=== PATIENT | female | born 1960 | race Caucasian/White ===

== ENCOUNTER 2018-12-20 11:07 | Inpatient (IN) | payer MEDICAID ==
[~2018-12-20] VITALS: Ht 157.5 cm; Wt 89.9 kg
[~2018-12-20 11:07] MED LIST: ACET-784 PO; AMLO5TAB9 PO; FLUO-191 PO; INSLAN SQ; LEVO500 PO; SIMV-260 PO
[2018-12-20] MEDS ORDERED: MULT-1145 PO (11:37)
[2018-12-20] MEDS ORDERED: CARV12 PO (11:37)
[2018-12-20] MEDS ORDERED: FURO20 PO (11:37)
[2018-12-20] MEDS ORDERED: GABA-531 PO (11:37)
[2018-12-20] MEDS ORDERED: OMEP20 PO (11:37)
[2018-12-20] MEDS ORDERED: GEMF600T5 PO (11:37)
[2018-12-20] MEDS ORDERED: CETI10TA59 PO (11:37)
[2018-12-20] MEDS ORDERED: KETOROLAC TROMETHAMINE 10 MG TABLET PO ONE (12:00)
[2018-12-20] MEDS ORDERED: ONDANSETRON HCL 4 MG/2 ML VIAL IVP ONE (13:15)
[2018-12-20] MEDS ORDERED: MORPHINE SULFATE 4 MG/ML SYRINGE IVP ONE (13:15)
[2018-12-20 14:14] LABS: BASOPHILS % (AUTO) 0.1 % (0.0-2.0); EOSINOPHILS % (AUTO) 0.2 % (1.0-6.0); HEMATOCRIT 25.6 % (36-46); HEMOGLOBIN 8.6 g/dL (12.0-16.0); LYMPHOCYTES # (AUTO) 1.2 K/uL (1.0-4.8); LYMPHOCYTES % (AUTO) 18.3 % (22.0-44.0); MEAN CORPUSCULAR HEMOGLOBIN 32.1 pg (26.0-34.0); MEAN CORPUSCULAR HGB CONC 33.6 G/dL (31.0-37.0); MEAN CORPUSCULAR VOLUME 96 fL (80-100); MONOCYTES # (AUTO) 0.4 K/uL (0.1-1.0); MONOCYTES % (AUTO) 5.8 % (2.0-9.0); NEUTROPHILS # (AUTO) 4.8 K/uL (1.8-7.7); NEUTROPHILS % (AUTO) 75.6 % (40.0-70.0); PLATELET COUNT (AUTO) 213 K/uL (150-450); RED BLOOD CELL COUNT(AUTO) 2.68 MIL/uL (4.00-5.20); RED CELL DISTRIBUTION WIDTH 13.8 % (11.5-14.5)
[2018-12-20] MEDS ORDERED: 0.9% SODIUM CHLORIDE 10 ML SYRINGE IVP PRN ×2 (14:15→20:15)
[2018-12-20] MEDS ORDERED: ONDANSETRON HCL 4 MG/2 ML VIAL IVP PRN (14:15)
[2018-12-20] MEDS ORDERED: HYDROmorphone 2 MG/ML SYRINGE IVP PRN (14:15)
[2018-12-20 14:19] LABS: CALCIUM, TOTAL 8.6 mg/dL (8.8-10.5); CREATININE 5.21 mg/dL (0.60-1.30); POTASSIUM 4.1 mmol/L (3.5-5.1)
[2018-12-20 14:23] LABS: PROTHROMBIN TIME 10.2 SEC (9.4-11.6)
[2018-12-20 14:24] LABS: ALBUMIN 2.3 g/dL (3.4-5.0); BILIRUBIN,TOTAL 0.2 mg/dL (0.1-1.0); TOTAL PROTEIN, SERUM 6.4 g/dL (6.4-8.2)
[2018-12-20 18:56] VITALS: BP 126/63
[2018-12-20] MEDS ORDERED: RINGERS SOLUTION,LACTATED 1,000 ML IV SCH (19:45)
[2018-12-20] MEDS ORDERED: DEXTROSE 50%-WATER 25 GM/50 ML SYRINGE IVP PRN (20:15)
[2018-12-20] MEDS ORDERED: HEPARIN SODIUM,PORCINE 5,000 UNITS/ML VIAL SQ ONE (20:15)
[2018-12-20] MEDS: INSULIN LISPRO 100 UNITS/ML SQ PRN (21:06)
[2018-12-20] MEDS: DOCUSATE SODIUM 100 MG CAPSULE PO SCH (21:15)
[2018-12-20] MEDS: OMEPRAZOLE 20 MG CAPSULE PO SCH (21:15)
[2018-12-20] MEDS: CARVEDILOL 12.5 MG TABLET PO SCH (21:15)
[2018-12-20] MEDS: OxyCODONE HCL/ACETAMINOPHEN 5-325 MG TABLET PO PRN (21:25)
[2018-12-21] VITALS (21 sets, daily range): BP systolic 78–130; BP diastolic 32–80
[2018-12-21 01:22] LABS: CREATININE,URINE RANDOM 65.6 mg/dL (30.0-125.0)
[2018-12-21] MEDS: INSULIN LISPRO 100 UNITS/ML SQ PRN ×4 (05:44→20:54)
[2018-12-21 06:05] LABS: BASOPHILS % (AUTO) 0.1 % (0.0-2.0); EOSINOPHILS % (AUTO) 0.4 % (1.0-6.0); HEMATOCRIT 23.1 % (36-46); HEMOGLOBIN 7.7 g/dL (12.0-16.0); LYMPHOCYTES # (AUTO) 0.9 K/uL (1.0-4.8); LYMPHOCYTES % (AUTO) 21.3 % (22.0-44.0); MEAN CORPUSCULAR HEMOGLOBIN 32.4 pg (26.0-34.0); MEAN CORPUSCULAR HGB CONC 33.4 G/dL (31.0-37.0); MEAN CORPUSCULAR VOLUME 97 fL (80-100); MONOCYTES # (AUTO) 0.4 K/uL (0.1-1.0); MONOCYTES % (AUTO) 8.2 % (2.0-9.0); NEUTROPHILS # (AUTO) 3.1 K/uL (1.8-7.7); PLATELET COUNT (AUTO) 186 K/uL (150-450); RED BLOOD CELL COUNT(AUTO) 2.38 MIL/uL (4.00-5.20); RED CELL DISTRIBUTION WIDTH 14.6 % (11.5-14.5)
[2018-12-21 06:37] LABS: CREATININE 5.3 mg/dL (0.60-1.30); PHOSPHORUS 6.5 mg/dL (2.5-4.9); POTASSIUM 4.5 mmol/L (3.5-5.1)
[2018-12-21 07:20] LABS: GLUCOMETER DEV NAME(LOC) 5N.1; GLUCOSE,POINT OF CARE 236 MG/DL (70-110)
[2018-12-21 07:20] LABS: GLUCOMETER DEV NAME(LOC) 5S.3; GLUCOSE,POINT OF CARE 370 MG/DL (70-110)
[2018-12-21 08:23] LABS: % IRON SATURATION 23.3 % (22-44)
[2018-12-21] MEDS: OMEPRAZOLE 20 MG CAPSULE PO SCH (08:46)
[2018-12-21] MEDS: CARVEDILOL 12.5 MG TABLET PO SCH ×2 (08:46→20:53)
[2018-12-21] MEDS: DOCUSATE SODIUM 100 MG CAPSULE PO SCH ×2 (08:46→20:46)
[2018-12-21] MEDS ORDERED: SODIUM CHLORIDE 0.9% 500 ML IV ONE ×2 (10:14→10:30)
[2018-12-21] MEDS: RINGERS SOLUTION,LACTATED 1,000 ML IV SCH ×2 (12:00→14:26)
[2018-12-21] MEDS: CALCIUM ACETATE 667 MG CAPSULE PO SCH ×2 (12:20→17:36)
[2018-12-21 15:28] LABS: GLUCOMETER DEV NAME(LOC) 5S.3; GLUCOSE,POINT OF CARE 310 MG/DL (70-110)
[2018-12-21 16:56] LABS: APPEARANCE,URINE TURBID (CLEAR); BILIRUBIN,URINE NEGATIVE (NEGATIVE); GLUCOSE, URINE (UA) 500 mg/dL (NEGATIVE); KETONES,URINE NEGATIVE (NEGATIVE); LEUKOCYTE ESTERASE ,URINE LARGE (NEGATIVE); NITRATE,URINE NEGATIVE (NEGATIVE); OCCULT BLOOD,URINE MODERATE (NEGATIVE); PH,URINE 5.5 (5.0-8.0); PROTEIN,URINE SEE CONFIRM (NEGATIVE); UROBILINOGEN,URINE 0.2 mg/dL (<=1.0)
[2018-12-21 17:16] LABS: BACTERIA,URINE Few /HPF (None Seen); WBC,URINE >100 /HPF (0-5); YEAST,URINE Few /HPF (None Seen)
[2018-12-21 17:17] LABS: SULFOSALICYLIC ACID,URINE 3+ (Negative)
[2018-12-21] MEDS: CefTRIAXone 1 GM/DEXTROSE 50 ML IV SCH (20:46)
[2018-12-21] MEDS: OxyCODONE HCL/ACETAMINOPHEN 5-325 MG TABLET PO PRN (20:47)
[2018-12-21 20:54] LABS: BASOPHILS % (AUTO) 0.1 % (0.0-2.0); EOSINOPHILS % (AUTO) 0.4 % (1.0-6.0); HEMATOCRIT 27.5 % (36-46); HEMOGLOBIN 9.1 g/dL (12.0-16.0); LYMPHOCYTES % (AUTO) 17.6 % (22.0-44.0); MEAN CORPUSCULAR HEMOGLOBIN 31.9 pg (26.0-34.0); MEAN CORPUSCULAR HGB CONC 33.1 G/dL (31.0-37.0); MEAN CORPUSCULAR VOLUME 96 fL (80-100); MONOCYTES # (AUTO) 0.4 K/uL (0.1-1.0); MONOCYTES % (AUTO) 6.9 % (2.0-9.0); NEUTROPHILS # (AUTO) 4.4 K/uL (1.8-7.7); PLATELET COUNT (AUTO) 189 K/uL (150-450); RED BLOOD CELL COUNT(AUTO) 2.86 MIL/uL (4.00-5.20)
[2018-12-21 21:14] LABS: GLUCOMETER DEV NAME(LOC) 5S.2A; GLUCOSE,POINT OF CARE 273 MG/DL (70-110)
[2018-12-21 21:14] LABS: GLUCOMETER DEV NAME(LOC) 5S.2A; GLUCOSE,POINT OF CARE 250 MG/DL (70-110)
[2018-12-22 04:24] VITALS: BP 99/51
[2018-12-22] MEDS: RINGERS SOLUTION,LACTATED 1,000 ML IV SCH ×2 (05:04→23:21)
[2018-12-22] MEDS: INSULIN LISPRO 100 UNITS/ML SQ PRN ×4 (05:19→22:19)
[2018-12-22 05:34] LABS: GLUCOMETER DEV NAME(LOC) 5S.2A; GLUCOSE,POINT OF CARE 243 MG/DL (70-110)
[2018-12-22 06:28] LABS: CALCIUM, TOTAL 7.9 mg/dL (8.8-10.5); CREATININE 6.39 mg/dL (0.60-1.30)
[2018-12-22 07:43] VITALS: BP 115/51
[2018-12-22] MEDS: CARVEDILOL 12.5 MG TABLET PO SCH ×2 (09:00→21:00)
[2018-12-22] MEDS: DOCUSATE SODIUM 100 MG CAPSULE PO SCH ×2 (09:30→21:00)
[2018-12-22] MEDS: CALCIUM ACETATE 667 MG CAPSULE PO SCH ×3 (09:30→18:37)
[2018-12-22] MEDS: OMEPRAZOLE 20 MG CAPSULE PO SCH (09:30)
[2018-12-22] MEDS: OxyCODONE HCL/ACETAMINOPHEN 5-325 MG TABLET PO PRN (10:31)
[2018-12-22 11:21] VITALS: BP 123/48
[2018-12-22 15:14] VITALS: BP 109/51
[2018-12-22 19:30] VITALS: BP 129/52
[2018-12-22 21:54] LABS: GLUCOMETER DEV NAME(LOC) 5N.2; GLUCOSE,POINT OF CARE 297 MG/DL (70-110)
[2018-12-22 21:54] LABS: GLUCOMETER DEV NAME(LOC) 5N.2; GLUCOSE,POINT OF CARE 250 MG/DL (70-110)
[2018-12-22] MEDS: CefTRIAXone 1 GM/DEXTROSE 50 ML IV SCH (21:55)
[2018-12-22 23:55] VITALS: BP 123/82
[2018-12-23] MEDS: OxyCODONE HCL/ACETAMINOPHEN 5-325 MG TABLET PO PRN (03:42)
[2018-12-23 05:12] VITALS: BP 121/52
[2018-12-23 06:00] LABS: BASOPHILS % (AUTO) 0.1 % (0.0-2.0); EOSINOPHILS % (AUTO) 0.6 % (1.0-6.0); HEMATOCRIT 26.1 % (36-46); HEMOGLOBIN 8.7 g/dL (12.0-16.0); LYMPHOCYTES % (AUTO) 18.6 % (22.0-44.0); MEAN CORPUSCULAR HEMOGLOBIN 32.1 pg (26.0-34.0); MEAN CORPUSCULAR HGB CONC 33.4 G/dL (31.0-37.0); MEAN CORPUSCULAR VOLUME 96 fL (80-100); MONOCYTES # (AUTO) 0.5 K/uL (0.1-1.0); MONOCYTES % (AUTO) 8.7 % (2.0-9.0); NEUTROPHILS # (AUTO) 3.8 K/uL (1.8-7.7); PLATELET COUNT (AUTO) 176 K/uL (150-450); RED BLOOD CELL COUNT(AUTO) 2.72 MIL/uL (4.00-5.20); RED CELL DISTRIBUTION WIDTH 14.2 % (11.5-14.5)
[2018-12-23] MEDS: INSULIN LISPRO 100 UNITS/ML SQ PRN ×4 (06:02→20:59)
[2018-12-23 06:13] LABS: CALCIUM, TOTAL 8.2 mg/dL (8.8-10.5); CREATININE 7.8 mg/dL (0.60-1.30); POTASSIUM 5.1 mmol/L (3.5-5.1)
[2018-12-23 07:31] VITALS: BP 148/63
[2018-12-23] MEDS: DOCUSATE SODIUM 100 MG CAPSULE PO SCH ×2 (08:53→20:59)
[2018-12-23] MEDS: CALCIUM ACETATE 667 MG CAPSULE PO SCH ×3 (08:53→18:10)
[2018-12-23] MEDS: OMEPRAZOLE 20 MG CAPSULE PO SCH (08:53)
[2018-12-23] MEDS: CARVEDILOL 12.5 MG TABLET PO SCH ×2 (09:00→21:35)
[2018-12-23] MEDS: SODIUM BICARBONATE 75 MEQ in SODIUM CHLORIDE 0.45% 1,000 ML IV SCH (09:09)
[2018-12-23 11:09] LABS: GLUCOMETER DEV NAME(LOC) 5N.2; GLUCOSE,POINT OF CARE 259 MG/DL (70-110)
[2018-12-23 11:09] LABS: GLUCOMETER DEV NAME(LOC) 5N.2; GLUCOSE,POINT OF CARE 250 MG/DL (70-110)
[2018-12-23 11:35] VITALS: BP 129/60
[2018-12-23 15:24] LABS: GLUCOMETER DEV NAME(LOC) 5N.2; GLUCOSE,POINT OF CARE 243 MG/DL (70-110)
[2018-12-23 15:31] VITALS: BP 129/61
[2018-12-23 18:00] LABS: CREATININE 8.1 mg/dL (0.60-1.30)
[2018-12-23 19:44] LABS: GLUCOMETER DEV NAME(LOC) 4E.2; GLUCOSE,POINT OF CARE 202 MG/DL (70-110)
[2018-12-23 20:47] VITALS: BP 143/62
[2018-12-23] MEDS: CefTRIAXone 1 GM/DEXTROSE 50 ML IV SCH (20:59)
[2018-12-23 23:39] LABS: GLUCOMETER DEV NAME(LOC) 4E.2; GLUCOSE,POINT OF CARE 217 MG/DL (70-110)
[2018-12-23 23:53] VITALS: BP 141/54
[2018-12-24 05:23] VITALS: BP 137/84
[2018-12-24] MEDS: INSULIN LISPRO 100 UNITS/ML SQ PRN ×4 (05:28→21:28)
[2018-12-24 05:42] LABS: BASOPHILS % (AUTO) 0.1 % (0.0-2.0); EOSINOPHILS % (AUTO) 0.5 % (1.0-6.0); HEMATOCRIT 24.5 % (36-46); HEMOGLOBIN 8.3 g/dL (12.0-16.0); LYMPHOCYTES # (AUTO) 0.9 K/uL (1.0-4.8); LYMPHOCYTES % (AUTO) 16.3 % (22.0-44.0); MEAN CORPUSCULAR HEMOGLOBIN 32.4 pg (26.0-34.0); MEAN CORPUSCULAR HGB CONC 33.7 G/dL (31.0-37.0); MEAN CORPUSCULAR VOLUME 96 fL (80-100); MONOCYTES # (AUTO) 0.5 K/uL (0.1-1.0); MONOCYTES % (AUTO) 8.7 % (2.0-9.0); NEUTROPHILS % (AUTO) 74.4 % (40.0-70.0); PLATELET COUNT (AUTO) 176 K/uL (150-450); RED BLOOD CELL COUNT(AUTO) 2.55 MIL/uL (4.00-5.20); RED CELL DISTRIBUTION WIDTH 13.8 % (11.5-14.5)
[2018-12-24 06:00] LABS: CALCIUM, TOTAL 8.3 mg/dL (8.8-10.5); CREATININE 8.17 mg/dL (0.60-1.30); MAGNESIUM 1.7 mg/dL (1.80-2.40); PHOSPHORUS 8.5 mg/dL (2.5-4.9); POTASSIUM 5.2 mmol/L (3.5-5.1)
[2018-12-24 06:19] LABS: GLUCOMETER DEV NAME(LOC) 4E.2; GLUCOSE,POINT OF CARE 188 MG/DL (70-110)
[2018-12-24 07:25] VITALS: BP 127/47
[2018-12-24] MEDS: CALCIUM ACETATE 667 MG CAPSULE PO SCH ×5 (08:00→17:55)
[2018-12-24] MEDS: CARVEDILOL 12.5 MG TABLET PO SCH ×3 (08:04→20:45)
[2018-12-24] MEDS: OMEPRAZOLE 20 MG CAPSULE PO SCH ×2 (08:04→10:14)
[2018-12-24] MEDS: DOCUSATE SODIUM 100 MG CAPSULE PO SCH ×3 (08:04→20:45)
[2018-12-24] MEDS: SODIUM POLYSTYRENE SULFONATE 15 GM/60 ML SUSPENSION BOTTLE PO ONE ×2 (08:08→10:20)
[2018-12-24] MEDS: SODIUM BICARBONATE 75 MEQ in SODIUM CHLORIDE 0.45% 1,000 ML IV SCH (08:49)
[2018-12-24 09:53] LABS: ALBUMIN URINE (ELP) 61.2 %
[2018-12-24 11:05] VITALS: BP 124/50
[2018-12-24] MEDS: OxyCODONE HCL/ACETAMINOPHEN 5-325 MG TABLET PO PRN (11:50)
[2018-12-24 16:17] VITALS: BP 139/62
[2018-12-24 17:17] LABS: CREATININE 8.58 mg/dL (0.60-1.30)
[2018-12-24 19:47] VITALS: BP 150/76
[2018-12-24 20:23] LABS: GLUCOMETER DEV NAME(LOC) 4E.2; GLUCOSE,POINT OF CARE 218 MG/DL (70-110)
[2018-12-24 20:24] LABS: GLUCOMETER DEV NAME(LOC) 4E.2; GLUCOSE,POINT OF CARE 252 MG/DL (70-110)
[2018-12-24] MEDS: CefTRIAXone 1 GM/DEXTROSE 50 ML IV SCH (20:57)
[2018-12-24 23:23] VITALS: BP 146/62
[2018-12-25 04:37] VITALS: BP 137/73
[2018-12-25 05:19] LABS: GLUCOMETER DEV NAME(LOC) 4E.2; GLUCOSE,POINT OF CARE 201 MG/DL (70-110)
[2018-12-25] MEDS: INSULIN LISPRO 100 UNITS/ML SQ PRN ×4 (05:55→20:42)
[2018-12-25 06:19] LABS: GLUCOMETER DEV NAME(LOC) 4E.2; GLUCOSE,POINT OF CARE 252 MG/DL (70-110)
[2018-12-25 07:15] VITALS: BP 150/67
[2018-12-25] MEDS: SODIUM BICARBONATE 75 MEQ in SODIUM CHLORIDE 0.45% 1,000 ML IV SCH (08:50)
[2018-12-25] MEDS: OMEPRAZOLE 20 MG CAPSULE PO SCH (08:50)
[2018-12-25] MEDS: CALCIUM ACETATE 667 MG CAPSULE PO SCH ×3 (08:50→17:57)
[2018-12-25] MEDS: DOCUSATE SODIUM 100 MG CAPSULE PO SCH ×2 (08:50→20:30)
[2018-12-25] MEDS: CARVEDILOL 12.5 MG TABLET PO SCH ×2 (08:50→20:26)
[2018-12-25 09:32] LABS: BASOPHILS % (AUTO) 0.1 % (0.0-2.0); EOSINOPHILS % (AUTO) 0.6 % (1.0-6.0); HEMATOCRIT 24.6 % (36-46); HEMOGLOBIN 8.2 g/dL (12.0-16.0); LYMPHOCYTES # (AUTO) 0.7 K/uL (1.0-4.8); LYMPHOCYTES % (AUTO) 12.5 % (22.0-44.0); MEAN CORPUSCULAR HGB CONC 33.5 G/dL (31.0-37.0); MEAN CORPUSCULAR VOLUME 96 fL (80-100); MONOCYTES # (AUTO) 0.5 K/uL (0.1-1.0); MONOCYTES % (AUTO) 8.2 % (2.0-9.0); NEUTROPHILS # (AUTO) 4.3 K/uL (1.8-7.7); NEUTROPHILS % (AUTO) 78.6 % (40.0-70.0); PLATELET COUNT (AUTO) 189 K/uL (150-450); RED BLOOD CELL COUNT(AUTO) 2.57 MIL/uL (4.00-5.20); RED CELL DISTRIBUTION WIDTH 13.8 % (11.5-14.5)
[2018-12-25 09:45] LABS: CALCIUM, TOTAL 8.3 mg/dL (8.8-10.5); CREATININE 8.64 mg/dL (0.60-1.30); MAGNESIUM 1.8 mg/dL (1.80-2.40); POTASSIUM 4.8 mmol/L (3.5-5.1)
[2018-12-25 10:05] LABS: PHOSPHORUS 9.3 mg/dL (2.5-4.9)
[2018-12-25 11:20] VITALS: BP 149/65
[2018-12-25 11:23] LABS: GLUCOMETER DEV NAME(LOC) 4E.2; GLUCOSE,POINT OF CARE 240 MG/DL (70-110)
[2018-12-25] MEDS ORDERED: MORPHINE SULFATE 2 MG/ML SYRINGE IVP ONE (12:00)
[2018-12-25] MEDS ORDERED: LORazepam 2 MG/ML VIAL IVP ONE ×2 (12:00)
[2018-12-25] MEDS ORDERED: SODIUM CHLORIDE 0.9% 1,000 ML IV ONE (14:46)
[2018-12-25] MEDS ORDERED: HEPARIN SODIUM,PORCINE 1,000 UNITS/ML VIAL IVP ONE ×2 (15:30)
[2018-12-25] MEDS ORDERED: MANNITOL 25%-12.5 GM/50 ML VIAL IVP ONE (15:30)
[2018-12-25 19:46] VITALS: BP 161/71
[2018-12-25 19:55] LABS: GLUCOMETER DEV NAME(LOC) 5S.1; GLUCOSE,POINT OF CARE 167 MG/DL (70-110)
[2018-12-25] MEDS: CefTRIAXone 1 GM/DEXTROSE 50 ML IV SCH (20:26)
[2018-12-25] MEDS: ACETAMINOPHEN 325 MG TABLET PO PRN (20:41)
[2018-12-25 21:19] LABS: GLUCOMETER DEV NAME(LOC) 5S.2A; GLUCOSE,POINT OF CARE 220 MG/DL (70-110)
[2018-12-25 22:30] VITALS: BP 188/87
[2018-12-25] MEDS: LABETALOL HCL 5 MG/ML 20 ML VIAL IVP PRN (22:50)
[2018-12-26 00:48] VITALS: BP 156/72
[2018-12-26 05:31] VITALS: BP 159/81
[2018-12-26] MEDS: INSULIN LISPRO 100 UNITS/ML SQ PRN ×3 (05:56→22:41)
[2018-12-26] MEDS: SODIUM BICARBONATE 75 MEQ in SODIUM CHLORIDE 0.45% 1,000 ML IV SCH (05:59)
[2018-12-26 07:02] LABS: CALCIUM, TOTAL 8.6 mg/dL (8.8-10.5); CREATININE 5.71 mg/dL (0.60-1.30); MAGNESIUM 1.6 mg/dL (1.80-2.40); PHOSPHORUS 7.3 mg/dL (2.5-4.9); POTASSIUM 4.1 mmol/L (3.5-5.1)
[2018-12-26 07:48] VITALS: BP 170/72
[2018-12-26] MEDS: OMEPRAZOLE 20 MG CAPSULE PO SCH (07:55)
[2018-12-26] MEDS: DOCUSATE SODIUM 100 MG CAPSULE PO SCH ×2 (07:55→20:23)
[2018-12-26] MEDS: CALCIUM ACETATE 667 MG CAPSULE PO SCH ×3 (07:55→17:08)
[2018-12-26] MEDS: CARVEDILOL 12.5 MG TABLET PO SCH ×2 (07:55→20:23)
[2018-12-26] MEDS: LABETALOL HCL 5 MG/ML 20 ML VIAL IVP PRN ×2 (07:56→15:38)
[2018-12-26] MEDS ORDERED: MANNITOL 25%-12.5 GM/50 ML VIAL IVP ONE (12:00)
[2018-12-26] MEDS ORDERED: HEPARIN SODIUM,PORCINE 1,000 UNITS/ML VIAL IVP ONE ×2 (12:00→14:22)
[2018-12-26 12:39] VITALS: BP 159/82
[2018-12-26 15:23] VITALS: BP 187/93
[2018-12-26] MEDS ORDERED: NIFEdipine 30 MG ER TABLET PO ONE (16:00)
[2018-12-26 19:50] LABS: GLUCOMETER DEV NAME(LOC) 5N.1; GLUCOSE,POINT OF CARE 271 MG/DL (70-110)
[2018-12-26 20:09] VITALS: BP 183/82
[2018-12-26] MEDS: NIFEdipine 30 MG ER TABLET PO SCH (20:23)
[2018-12-26] MEDS: ONDANSETRON HCL 4 MG/2 ML VIAL IVP PRN (20:47)
[2018-12-26] MEDS: CefTRIAXone 1 GM/DEXTROSE 50 ML IV SCH (20:55)
[2018-12-26] MEDS: ACETAMINOPHEN 325 MG TABLET PO PRN (22:44)
[2018-12-26 22:55] LABS: GLUCOMETER DEV NAME(LOC) 5S.2A; GLUCOSE,POINT OF CARE 225 MG/DL (70-110)
[2018-12-26 22:55] LABS: GLUCOMETER DEV NAME(LOC) 5S.1; GLUCOSE,POINT OF CARE 203 MG/DL (70-110)
[2018-12-27 00:37] VITALS: BP 161/87
[2018-12-27 04:17] VITALS: BP 121/57
[2018-12-27 05:41] LABS: BASOPHILS % (AUTO) 0.1 % (0.0-2.0); EOSINOPHILS % (AUTO) 0.9 % (1.0-6.0); HEMATOCRIT 24.2 % (36-46); HEMOGLOBIN 8.2 g/dL (12.0-16.0); LYMPHOCYTES # (AUTO) 0.6 K/uL (1.0-4.8); LYMPHOCYTES % (AUTO) 12.3 % (22.0-44.0); MEAN CORPUSCULAR HEMOGLOBIN 31.9 pg (26.0-34.0); MEAN CORPUSCULAR HGB CONC 33.8 G/dL (31.0-37.0); MEAN CORPUSCULAR VOLUME 94 fL (80-100); MONOCYTES # (AUTO) 0.6 K/uL (0.1-1.0); MONOCYTES % (AUTO) 11.3 % (2.0-9.0); NEUTROPHILS # (AUTO) 3.9 K/uL (1.8-7.7); NEUTROPHILS % (AUTO) 75.4 % (40.0-70.0); PLATELET COUNT (AUTO) 220 K/uL (150-450); RED BLOOD CELL COUNT(AUTO) 2.56 MIL/uL (4.00-5.20); RED CELL DISTRIBUTION WIDTH 13.7 % (11.5-14.5)
[2018-12-27 05:54] LABS: CALCIUM, TOTAL 8.7 mg/dL (8.8-10.5); CREATININE 4.99 mg/dL (0.60-1.30); MAGNESIUM 1.7 mg/dL (1.80-2.40); POTASSIUM 4.1 mmol/L (3.5-5.1)
[2018-12-27] MEDS: INSULIN LISPRO 100 UNITS/ML SQ PRN ×4 (06:19→21:30)
[2018-12-27 08:02] VITALS: BP 120/53
[2018-12-27] MEDS: DOCUSATE SODIUM 100 MG CAPSULE PO SCH ×2 (08:47→21:15)
[2018-12-27] MEDS: CALCIUM ACETATE 667 MG CAPSULE PO SCH ×3 (08:47→18:13)
[2018-12-27] MEDS: OMEPRAZOLE 20 MG CAPSULE PO SCH (08:47)
[2018-12-27] MEDS: ONDANSETRON HCL 4 MG/2 ML VIAL IVP PRN (08:51)
[2018-12-27] MEDS: CARVEDILOL 12.5 MG TABLET PO SCH ×2 (09:00→21:00)
[2018-12-27] MEDS ORDERED: EPOETIN ALFA 10,000 UNITS/ML VIAL SQ SCH (09:00)
[2018-12-27] MEDS: CALCITRIOL 0.25 MCG CAPSULE PO SCH (11:37)
[2018-12-27 11:40] LABS: GLUCOMETER DEV NAME(LOC) 5N.2; GLUCOSE,POINT OF CARE 262 MG/DL (70-110)
[2018-12-27 11:40] LABS: GLUCOMETER DEV NAME(LOC) 5N.2; GLUCOSE,POINT OF CARE 251 MG/DL (70-110)
[2018-12-27 11:49] VITALS: BP 125/63
[2018-12-27 15:30] VITALS: BP 149/65
[2018-12-27 19:59] VITALS: BP 159/73
[2018-12-27] MEDS ORDERED: SODIUM CHLORIDE 0.9% 100 ML ONE (21:04)
[2018-12-27] MEDS: NIFEdipine 30 MG ER TABLET PO SCH (21:15)
[2018-12-27] MEDS: CefTRIAXone 1 GM/DEXTROSE 50 ML IV SCH (21:15)
[2018-12-28] VITALS (8 sets, daily range): BP systolic 137–172; BP diastolic 66–82
[2018-12-28] MEDS: LABETALOL HCL 5 MG/ML 20 ML VIAL IVP PRN (00:13)
[2018-12-28 05:30] LABS: GLUCOMETER DEV NAME(LOC) 5N.2; GLUCOSE,POINT OF CARE 256 MG/DL (70-110)
[2018-12-28 05:30] LABS: GLUCOMETER DEV NAME(LOC) 5N.2; GLUCOSE,POINT OF CARE 213 MG/DL (70-110)
[2018-12-28 05:30] LABS: GLUCOMETER DEV NAME(LOC) 5S.2A; GLUCOSE,POINT OF CARE 252 MG/DL (70-110)
[2018-12-28 05:30] LABS: GLUCOMETER DEV NAME(LOC) 5N.2; GLUCOSE,POINT OF CARE 209 MG/DL (70-110)
[2018-12-28] MEDS: INSULIN LISPRO 100 UNITS/ML SQ PRN ×4 (06:19→20:21)
[2018-12-28 06:34] LABS: CALCIUM, TOTAL 9.5 mg/dL (8.8-10.5); CREATININE 4.89 mg/dL (0.60-1.30); POTASSIUM 3.6 mmol/L (3.5-5.1)
[2018-12-28] MEDS: DOCUSATE SODIUM 100 MG CAPSULE PO SCH ×2 (08:29→20:13)
[2018-12-28] MEDS: CARVEDILOL 12.5 MG TABLET PO SCH ×2 (08:29→20:14)
[2018-12-28] MEDS: ONDANSETRON HCL 4 MG/2 ML VIAL IVP PRN (08:30)
[2018-12-28] MEDS: OMEPRAZOLE 20 MG CAPSULE PO SCH (08:30)
[2018-12-28] MEDS: CALCIUM ACETATE 667 MG CAPSULE PO SCH ×3 (08:30→18:04)
[2018-12-28] MEDS ORDERED: LACTULOSE 20 GM/30 ML SOLUTION UDCUP PO ONE (09:15)
[2018-12-28 12:59] LABS: GLUCOMETER DEV NAME(LOC) 5N.1; GLUCOSE,POINT OF CARE 353 MG/DL (70-110)
[2018-12-28] MEDS: CefTRIAXone 1 GM/DEXTROSE 50 ML IV SCH (20:13)
[2018-12-28] MEDS: NIFEdipine 30 MG ER TABLET PO SCH (20:14)
[2018-12-29 05:30] VITALS: BP 147/70
[2018-12-29 05:35] LABS: BASOPHILS % (AUTO) 0.1 % (0.0-2.0); EOSINOPHILS % (AUTO) 1.1 % (1.0-6.0); HEMATOCRIT 27.7 % (36-46); HEMOGLOBIN 9.2 g/dL (12.0-16.0); MEAN CORPUSCULAR HEMOGLOBIN 31.8 pg (26.0-34.0); MEAN CORPUSCULAR HGB CONC 33.3 G/dL (31.0-37.0); MEAN CORPUSCULAR VOLUME 96 fL (80-100); MONOCYTES # (AUTO) 0.6 K/uL (0.1-1.0); MONOCYTES % (AUTO) 8.2 % (2.0-9.0); NEUTROPHILS # (AUTO) 5.2 K/uL (1.8-7.7); NEUTROPHILS % (AUTO) 75.6 % (40.0-70.0); PLATELET COUNT (AUTO) 267 K/uL (150-450); RED BLOOD CELL COUNT(AUTO) 2.89 MIL/uL (4.00-5.20)
[2018-12-29 05:51] LABS: ALBUMIN 1.8 g/dL (3.4-5.0); BILIRUBIN,TOTAL 0.2 mg/dL (0.1-1.0); CALCIUM, TOTAL 9.2 mg/dL (8.8-10.5); CREATININE 4.7 mg/dL (0.60-1.30); POTASSIUM 3.5 mmol/L (3.5-5.1); TOTAL PROTEIN, SERUM 5.9 g/dL (6.4-8.2)
[2018-12-29] MEDS: INSULIN LISPRO 100 UNITS/ML SQ PRN ×4 (06:35→20:47)
[2018-12-29 06:41] LABS: BILIRUBIN,URINE NEGATIVE (NEGATIVE); GLUCOSE, URINE (UA) 500 mg/dL (NEGATIVE); KETONES,URINE TRACE mg/dL (NEGATIVE); NITRATE,URINE NEGATIVE (NEGATIVE); OCCULT BLOOD,URINE MODERATE (NEGATIVE); PROTEIN,URINE SEE CONFIRM (NEGATIVE); UROBILINOGEN,URINE 0.2 mg/dL (<=1.0)
[2018-12-29 06:56] LABS: LEUKOCYTE ESTERASE ,URINE MODERATE (NEGATIVE)
[2018-12-29 06:57] LABS: APPEARANCE,URINE HAZY (CLEAR); BACTERIA,URINE Few /HPF (None Seen); SQUAMOUS EPITHELIAL CELL,UR Few /LPF (None Seen); SULFOSALICYLIC ACID,URINE 3+ (Negative)
[2018-12-29] MEDS: CALCIUM ACETATE 667 MG CAPSULE PO SCH ×3 (08:04→17:58)
[2018-12-29] MEDS: CARVEDILOL 12.5 MG TABLET PO SCH ×2 (08:04→20:38)
[2018-12-29] MEDS: OMEPRAZOLE 20 MG CAPSULE PO SCH (08:04)
[2018-12-29] MEDS: DOCUSATE SODIUM 100 MG CAPSULE PO SCH ×2 (08:04→20:37)
[2018-12-29] MEDS: CALCITRIOL 0.25 MCG CAPSULE PO SCH (08:04)
[2018-12-29 08:16] VITALS: BP 164/75
[2018-12-29 11:09] LABS: GLUCOMETER DEV NAME(LOC) 5N.1; GLUCOSE,POINT OF CARE 223 MG/DL (70-110)
[2018-12-29 11:15] LABS: GLUCOMETER DEV NAME(LOC) 5S.1; GLUCOSE,POINT OF CARE 176 MG/DL (70-110)
[2018-12-29 12:12] VITALS: BP 160/81
[2018-12-29 13:04] LABS: GLUCOMETER DEV NAME(LOC) 5N.2; GLUCOSE,POINT OF CARE 235 MG/DL (70-110)
[2018-12-29 13:05] LABS: GLUCOMETER DEV NAME(LOC) 5N.2; GLUCOSE,POINT OF CARE 331 MG/DL (70-110)
[2018-12-29 15:40] VITALS: BP 158/82
[2018-12-29] MEDS: NIFEdipine 30 MG ER TABLET PO SCH (20:37)
[2018-12-29] MEDS: CefTRIAXone 1 GM/DEXTROSE 50 ML IV SCH (20:38)
[2018-12-29 20:40] LABS: GLUCOMETER DEV NAME(LOC) 5N.1; GLUCOSE,POINT OF CARE 246 MG/DL (70-110)
[2018-12-29] MEDS: ACETAMINOPHEN 325 MG TABLET PO PRN (20:45)
[2018-12-29 20:47] VITALS: BP 158/72
[2018-12-30 00:34] VITALS: BP 145/70
[2018-12-30 05:04] LABS: GLUCOMETER DEV NAME(LOC) 5S.1; GLUCOSE,POINT OF CARE 230 MG/DL (70-110)
[2018-12-30 05:36] VITALS: BP 155/61
[2018-12-30 06:01] LABS: BASOPHILS % (AUTO) 0.3 % (0.0-2.0); EOSINOPHILS % (AUTO) 0.7 % (1.0-6.0); HEMATOCRIT 25.7 % (36-46); HEMOGLOBIN 8.9 g/dL (12.0-16.0); LYMPHOCYTES # (AUTO) 1.6 K/uL (1.0-4.8); LYMPHOCYTES % (AUTO) 23.8 % (22.0-44.0); MEAN CORPUSCULAR HEMOGLOBIN 32.9 pg (26.0-34.0); MEAN CORPUSCULAR HGB CONC 34.7 G/dL (31.0-37.0); MEAN CORPUSCULAR VOLUME 95 fL (80-100); MONOCYTES # (AUTO) 0.6 K/uL (0.1-1.0); MONOCYTES % (AUTO) 9.7 % (2.0-9.0); NEUTROPHILS # (AUTO) 4.3 K/uL (1.8-7.7); NEUTROPHILS % (AUTO) 65.5 % (40.0-70.0); PLATELET COUNT (AUTO) 252 K/uL (150-450); RED BLOOD CELL COUNT(AUTO) 2.71 MIL/uL (4.00-5.20); RED CELL DISTRIBUTION WIDTH 13.7 % (11.5-14.5)
[2018-12-30 06:10] LABS: CALCIUM, TOTAL 9.1 mg/dL (8.8-10.5); CREATININE 4.68 mg/dL (0.60-1.30); POTASSIUM 3.3 mmol/L (3.5-5.1)
[2018-12-30] MEDS: INSULIN LISPRO 100 UNITS/ML SQ PRN ×3 (06:44→17:23)
[2018-12-30 07:40] VITALS: BP 136/64
[2018-12-30] MEDS ORDERED: POTASSIUM CHLORIDE 20 MEQ ER TABLET PO ONE (08:45)
[2018-12-30] MEDS: DOCUSATE SODIUM 100 MG CAPSULE PO SCH (08:54)
[2018-12-30] MEDS: OMEPRAZOLE 20 MG CAPSULE PO SCH (08:54)
[2018-12-30] MEDS: CALCIUM ACETATE 667 MG CAPSULE PO SCH ×3 (08:54→18:07)
[2018-12-30] MEDS: CARVEDILOL 12.5 MG TABLET PO SCH (08:54)
[2018-12-30 11:34] VITALS: BP 144/78
[2018-12-30] MEDS: ACETAMINOPHEN 325 MG TABLET PO PRN (13:43)
[2018-12-30 15:37] VITALS: BP 140/60
[2018-12-30 20:30] LABS: GLUCOMETER DEV NAME(LOC) 5N.1; GLUCOSE,POINT OF CARE 333 MG/DL (70-110)
[2018-12-31 02:34] LABS: GLUCOMETER DEV NAME(LOC) 5N.2; GLUCOSE,POINT OF CARE 223 MG/DL (70-110)
[2018-12-31 02:34] LABS: GLUCOMETER DEV NAME(LOC) 5N.2; GLUCOSE,POINT OF CARE 206 MG/DL (70-110)
== END 2018-12-30 19:30 | DRG 308 ==
LOC: EMS 11:09 → 5N 18:45 → 4E 12-23 16:15 → 5S 12-25 17:55
PROVIDERS: ADMIT Internal Medicine; ATTEND Internal Medicine
PROC: 0QSBXZZ Reposition Right Lower Femur, External Approach (ICD-10-PCS; principal; 2018-12-22)
PROC: 02HV33Z Insertion of Infusion Device into Superior Vena Cava, Percutaneous Approach (ICD-10-PCS; 2018-12-25)
PROC: B548ZZA Ultrasonography of Superior Vena Cava, Guidance (ICD-10-PCS; 2018-12-25)
PROC: 5A1D70Z Performance of Urinary Filtration, Intermittent, Less than 6 Hours Per Day (ICD-10-PCS; 2018-12-26)
DX: S72.451A Displaced supracondylar fracture without intracondylar extension of lower end of right femur, initial encounter for closed fracture (principal); E43 Unspecified severe protein-calorie malnutrition; G93.49 Other encephalopathy; N17.9 Acute kidney failure, unspecified; E11.22 Type 2 diabetes mellitus with diabetic chronic kidney disease; I95.9 Hypotension, unspecified; E66.01 Morbid (severe) obesity due to excess calories; E11.42 Type 2 diabetes mellitus with diabetic polyneuropathy; S82.001A Unspecified fracture of right patella, initial encounter for closed fracture; E11.65 Type 2 diabetes mellitus with hyperglycemia; D63.1 Anemia in chronic kidney disease; N18.9 Chronic kidney disease, unspecified; F32.9 Major depressive disorder, single episode, unspecified; I12.9 Hypertensive chronic kidney disease with stage 1 through stage 4 chronic kidney disease, or unspecified chronic kidney disease; E78.00 Pure hypercholesterolemia, unspecified; E78.1 Pure hyperglyceridemia; E78.5 Hyperlipidemia, unspecified; W18.39XA Other fall on same level, initial encounter; E87.2 Acidosis; Z83.3 Family history of diabetes mellitus; Z87.440 Personal history of urinary (tract) infections; Y93.89 Activity, other specified; Y92.89 Other specified places as the place of occurrence of the external cause; Y99.8 Other external cause status; Z68.36 Body mass index [BMI] 36.0-36.9, adult
CPT/HCPCS: 70450; 73502; 73552; 73700; 76770; 82270; 82565; 82570; 82728; 83540; 83550; 83735; 83970; 84100; 84156; 84166; 84300; 84520; 86850; 86870; 86900; 86901; 86902; 86905; 86922; 87040; 87086; 87340; 93005; 96374; 96375; 97110; 97116; 97163; 97166; 97530; 97535; G0378; J0696; J0885; J1644; J2060; J2150; J2270; J2405; J3490; J7030; J7040; J7050; J7120; P9016